=== PATIENT | male | born 1995 | race African-American/Black ===

== ENCOUNTER 2018-01-15 01:37 | Emergency (ER) | payer MEDICAID ==
[~2018-01-15] VITALS: Ht 162.6 cm; Wt 45.4 kg
[2018-01-15 01:40] VITALS: BP_SYST 134
[2018-01-15] MEDS ORDERED: ONDANSETRON HCL 4 MG/2 ML VIAL IVP ONE (02:15)
[2018-01-15] MEDS ORDERED: HALOPERIDOL LACTATE 5 MG/ML VIAL IVP ONE (02:15)
[2018-01-15] MEDS ORDERED: NACL 0.9% 1,000 ML IV ONE (02:15)
[2018-01-15] MEDS ORDERED: MORPHINE 4 MG/ML INJ. SYRINGE IVP ONE (02:30)
[2018-01-15] MEDS ORDERED: FAMOTIDINE PF 20 MG/2 ML VIAL IVP ONE (02:30)
[2018-01-15 02:52] LABS: BILIRUBIN,URINE NEGATIVE (NEGATIVE); CLARITY/URINE SL HAZY (CLEAR); COLOR,URINE YELLOW (YELLOW); GLUCOSE,URINE 2+ (NEGATIVE); KETONES,URINE 2+ (NEGATIVE); LEUKOCYTE ESTERASE ,URINE NEGATIVE (NEGATIVE); NITRITE, URINE NEGATIVE (NEGATIVE); PROTEIN URINE 2+ (NEGATIVE); UROBILINOGEN,URINE 0.2 (0.2-1.0)
[2018-01-15 02:54] LABS: BLOOD, URINE TRACE (NEGATIVE)
[2018-01-15 03:05] LABS: CANNABINOID, URINE POSITIVE (NEG <=50)
[2018-01-15 03:06] LABS: BARBITURATE, URINE NEGATIVE (NEG <=200); BENZODIAZEPINE, URINE NEGATIVE (NEG <=150); COCAINE, URINE NEGATIVE (NEG <=150); METHAMPHETAMINES SCREEN,URINE NEGATIVE (NEG <=500); OPIATE, URINE NEGATIVE (NEG <=100); PHENCYCLIDINE SCREEN,URINE NEGATIVE (NEG <=25); UR TRICYCLIC ANTIDEPRESSANTS NEGATIVE (NEG <=300); URINE AMPHETAMINE NEGATIVE (NEG <=500); URINE METHADONE NEGATIVE (NEG <=200); URINE OXYCODONE SCREEN NEGATIVE (NEG <=100); URINE PROPOXYPHENE SCREEN NEGATIVE (NEG <=300)
[2018-01-15 03:07] LABS: CALCIUM 10.4 mg/dL (8.4-11.0); CREATININE 1.45 mg/dL (0.55-1.30)
[2018-01-15 03:15] LABS: ALBUMIN 5.4 g/dL (3.4-4.8); TOTAL BILIRUBIN 1.6 mg/dL (0.0-1.0)
[2018-01-15 03:32] LABS: BASOPHILS # (AUTO) 0.1 K/uL (0.0-0.2); BASOPHILS % (AUTO) 0.3 % (0.0-2.0); EOSINOPHILS % (AUTO) 0.1 % (0.0-4.0); HEMATOCRIT 48.1 % (36-54); HEMOGLOBIN 16.3 g/dL (14.0-18.0); LYMPHOCYTES # (AUTO) 0.4 K/uL (1.0-5.5); LYMPHOCYTES % (AUTO) 1.7 % (20.5-51.5); MEAN CORPUSCULAR HEMOGLOBIN 30 pg (27-31); MEAN CORPUSCULAR HGB CONC 34 % (32-36); MEAN CORPUSCULAR VOLUME 90 fL (79.0-98.0); MONOCYTES # (AUTO) 0.2 K/uL (0.0-1.0); MONOCYTES % (AUTO) 0.9 % (1.7-9.3); PLATELET COUNT (AUTO) 400 K/uL (130-430); RED BLOOD CELL COUNT(AUTO) 5.37 MIL/uL (4.2-6.2); RED CELL DISTRIBUTION WIDTH 11.7 % (9.0-15.0)
[2018-01-15 03:47] LABS: WHITE BLOOD COUNT (AUTO) 23.7 K/uL (4.8-10.8)
[2018-01-15 03:56] LABS: BACTERIA,URINE MODERATE /HPF (None Seen); WBC,URINE 0-3 /HPF (0-3)
[2018-01-15 03:57] LABS: MUCUS,URINE 3+ /LPF (None Seen); YEAST,URINE None Seen /HPF (None Seen)
[2018-01-15 04:25] VITALS: BP_SYST 130
== END 2018-01-15 04:25 | disposition home or self-care (01) ==
LOC: SED 01:37
DX: K29.70 Gastritis, unspecified, without bleeding (principal)
CPT/HCPCS: 36415; 80053; 80307; 81000; 83690; 85025; 87086; 96374; 96375; 99284; G0482; J1630; J2270; J2405; J3490; J7030

== ENCOUNTER 2018-08-24 16:13 | Emergency (ER) | payer SELFPAY ==
[~2018-08-24] VITALS: Ht 167.6 cm; Wt 49.9 kg
[2018-08-24 16:15] VITALS: BP_SYST 113
[2018-08-24] MEDS ORDERED: NACL 0.9% 1,000 ML IV ONE (16:45)
[2018-08-24] MEDS ORDERED: HALOPERIDOL LACTATE 5 MG/ML VIAL IVP ONE ×2 (16:45→17:45)
[2018-08-24] MEDS ORDERED: KETOROLAC TROMETHAMINE 15 MG VIAL IVP ONE (16:45)
[2018-08-24 16:53] LABS: HEMATOCRIT 47.2 % (36-54); HEMOGLOBIN 15.9 g/dL (14.0-18.0); MEAN CORPUSCULAR HEMOGLOBIN 30 pg (27-31); MEAN CORPUSCULAR HGB CONC 34 % (32-36); MEAN CORPUSCULAR VOLUME 88 fL (79.0-98.0); PLATELET COUNT (AUTO) 364 K/uL (130-430); RED BLOOD CELL COUNT(AUTO) 5.35 MIL/uL (4.2-6.2); RED CELL DISTRIBUTION WIDTH 13.5 % (9.0-15.0); WHITE BLOOD COUNT (AUTO) 16.4 K/uL (4.8-10.8)
[2018-08-24 17:06] LABS: CALCIUM 10.1 mg/dL (8.4-11.0); CREATININE 1.04 mg/dL (0.55-1.30); POTASSIUM 3.4 mmol/L (3.5-5.1)
[2018-08-24 17:10] LABS: ALBUMIN 5.2 g/dL (3.4-4.8); TOTAL BILIRUBIN 1.2 mg/dL (0.0-1.0)
[2018-08-24 17:13] LABS: ATYPICAL LYMPHOCYTES % 0 % (0-0); BAND % (MANUAL) 1 % (0-6); BASOPHILS % (MANUAL) 0 % (0-2); EOSINOPHILS % (MANUAL) 0 % (0-7); LYMPHOCYTES % (MANUAL) 7 % (20-46); MONOCYTES % (MANUAL) 1 % (0-11)
[2018-08-24 17:52] VITALS: BP_SYST 122
== END 2018-08-24 17:49 | disposition home or self-care (01) ==
LOC: SED 16:13
DX: F12.188 Cannabis abuse with other cannabis-induced disorder (principal)
CPT/HCPCS: 36415; 80053; 83690; 85007; 85027; 96361; 96374; 96375; 99283; J1630; J1885; J7030

== ENCOUNTER 2018-10-15 08:43 | Inpatient (IN) | payer SELFPAY ==
[~2018-10-15] VITALS: Ht 170.2 cm; Wt 49.9 kg
--- NOTE | 2018-10-15 08:43 | NUR ---
BROUGHT BACK TO BED #5 AND TRIAGED. REPORT GIVEN TO DIANA
[2018-10-15 08:44] VITALS: BP_SYST 93
[2018-10-15] MEDS ORDERED: ONDANSETRON HCL 4 MG/2 ML VIAL IVP ONE ×2 (08:45→10:30)
[2018-10-15] MEDS ORDERED: NS 1000 ML IV.SOLN IV ONE (08:45)
[2018-10-15] MEDS ORDERED: NACL 0.9% 1,000 ML IV ONE (08:45)
--- NOTE | 2018-10-15 08:45 | NUR ---
Pt presents to ED c/o nausea and vomiting after drinking excessively.
--- NOTE | 2018-10-15 09:00 | NUR ---
ER at bedside examining patient.
--- NOTE | 2018-10-15 09:15 | NUR ---
# 18 gauge angiocath placed to RAC. Use of asceptic technique. Opsite placed over site. Blood return noted. Blood for lab drawn from site. Flushed with 10 cc of normal saline. No evidence of infiltration noted. Patient tolerated well.
[2018-10-15 09:19] LABS: BASOPHILS # (AUTO) 0.1 K/uL (0.0-0.2); BASOPHILS % (AUTO) 0.5 % (0.0-2.0); HEMATOCRIT 47.6 % (36-54); LYMPHOCYTES # (AUTO) 0.5 K/uL (1.0-5.5); MEAN CORPUSCULAR HEMOGLOBIN 29 pg (27-31); MEAN CORPUSCULAR HGB CONC 34 % (32-36); MEAN CORPUSCULAR VOLUME 87 fL (79.0-98.0); MONOCYTES # (AUTO) 1.2 K/uL (0.0-1.0); MONOCYTES % (AUTO) 5.2 % (1.7-9.3); NEUTROPHILS # (AUTO) 21.2 K/uL (1.8-7.7); NEUTROPHILS % (AUTO) 92.3 % (40.0-70.0); PLATELET COUNT (AUTO) 506 K/uL (130-430); RED BLOOD CELL COUNT(AUTO) 5.45 MIL/uL (4.2-6.2); RED CELL DISTRIBUTION WIDTH 12.8 % (9.0-15.0); WHITE BLOOD COUNT (AUTO) 22.9 K/uL (4.8-10.8)
[2018-10-15 09:45] LABS: ANION GAP 16 (5-15); CALCIUM 10.5 mg/dL (8.4-11.0); CHLORIDE 100 mmol/L (98-107); CREATININE 1.35 mg/dL (0.55-1.30); GFR AFRICAN AMERICAN 85 mL/min (>90); GLUCOSE 171 mg/dL (70-99); POTASSIUM 3.5 mmol/L (3.5-5.1); SODIUM SERUM 140 mmol/L (136-145); UREA NITROGEN, BLOOD 15 mg/dL (8-21)
[2018-10-15] MEDS ORDERED: cefTRIAXone 1 GM IVPB PREMIX 50 ML IV ONE (09:45)
[2018-10-15 09:47] LABS: PROTHROMBIN TIME 10.5 SECS (9.5-12.5)
[2018-10-15 09:49] LABS: ALANINE AMINOTRANSFERASE 31 U/L (12-78); ALBUMIN 5.1 g/dL (3.4-4.8); AMYLASE 89 U/L (0-100); ASPARTATE AMINOTRANSFERASE 21 U/L (10-37); LIPASE 41 U/L (73-393); TOTAL BILIRUBIN 0.7 mg/dL (0.0-1.0)
[2018-10-15 09:51] LABS: ALCOHOL, BLOOD < 3 mg/dL (<10)
[2018-10-15 09:52] LABS: ACETAMINOPHEN < 1 ug/mL (1-30)
[2018-10-15] MEDS ORDERED: NACL 0.9% 2,000 ML IV ONE ×2 (10:00→13:00)
[2018-10-15 10:14] LABS: BILIRUBIN,URINE NEGATIVE (NEGATIVE); BLOOD, URINE NEGATIVE (NEGATIVE); CLARITY/URINE CLEAR (CLEAR); COLOR,URINE YELLOW (YELLOW); GLUCOSE,URINE 1+ (NEGATIVE); KETONES,URINE TRACE (NEGATIVE); LEUKOCYTE ESTERASE ,URINE NEGATIVE (NEGATIVE); NITRITE, URINE NEGATIVE (NEGATIVE); PH,URINE 8.5 (5.0-8.0); PROTEIN URINE 1+ (NEGATIVE); UROBILINOGEN,URINE 0.2 (0.2-1.0)
[2018-10-15 10:26] LABS: BARBITURATE, URINE NEGATIVE (NEG <=200); BENZODIAZEPINE, URINE NEGATIVE (NEG <=150); COCAINE, URINE NEGATIVE (NEG <=150); METHAMPHETAMINES SCREEN,URINE NEGATIVE (NEG <=500); OPIATE, URINE NEGATIVE (NEG <=100); PHENCYCLIDINE SCREEN,URINE NEGATIVE (NEG <=25); UR TRICYCLIC ANTIDEPRESSANTS NEGATIVE (NEG <=300); URINE AMPHETAMINE NEGATIVE (NEG <=500); URINE METHADONE NEGATIVE (NEG <=200); URINE OXYCODONE SCREEN NEGATIVE (NEG <=100); URINE PROPOXYPHENE SCREEN NEGATIVE (NEG <=300)
[2018-10-15 10:27] LABS: CANNABINOID, URINE POSITIVE (NEG <=50)
--- NOTE | 2018-10-15 10:45 | NUR ---
Pt given IVF bolus ,continuing to monitor for improvement
--- NOTE | 2018-10-15 11:30 | NUR ---
Pt ambulated to restroom steady gait w/o assist.
--- NOTE | 2018-10-15 12:27 | NUR ---
Pt resting at this time, VSS, respirations even and unlabored.
[2018-10-15 13:25] LABS: BASOPHILS % (AUTO) 0.1 % (0.0-2.0); HEMATOCRIT 38.8 % (36-54); HEMOGLOBIN 12.9 g/dL (14.0-18.0); LYMPHOCYTES # (AUTO) 0.5 K/uL (1.0-5.5); LYMPHOCYTES % (AUTO) 2.8 % (20.5-51.5); MEAN CORPUSCULAR HEMOGLOBIN 30 pg (27-31); MEAN CORPUSCULAR HGB CONC 33 % (32-36); MEAN CORPUSCULAR VOLUME 89 fL (79.0-98.0); MONOCYTES # (AUTO) 0.5 K/uL (0.0-1.0); MONOCYTES % (AUTO) 2.6 % (1.7-9.3); NEUTROPHILS % (AUTO) 94.5 % (40.0-70.0); PLATELET COUNT (AUTO) 351 K/uL (130-430); RED BLOOD CELL COUNT(AUTO) 4.37 MIL/uL (4.2-6.2); RED CELL DISTRIBUTION WIDTH 12.5 % (9.0-15.0)
[2018-10-15] MEDS ORDERED: PROCHLORPERAZINE EDISYLATE 10 MG/2 ML VIAL IVP ONE (14:00)
[2018-10-15] MEDS ORDERED: D5/0.45 NS 1,000 ML IV SCH (14:12)
[2018-10-15] MEDS ORDERED: ONDANSETRON HCL 4 MG/2 ML VIAL IVP PRN (14:15)
--- NOTE | 2018-10-15 14:27 | NUR ---
Pt medicated for nausea,pt tolerated well.
--- NOTE | 2018-10-15 14:28 | NUR ---
Patient will be admitted to care of . Admitted to Med/surg unit. Will go to room 116A. Summary report printed. Report will be given at bedside.
--- NOTE | 2018-10-15 14:49 | NUR ---
ADMISSION NOTE Received patient from ER via doreen, received report from DIANA DAVILA. Patient admitted with diagnosis of GI UPSET. Patient oriented to hospital routine, call light, toileting and safety-patient verbalized understanding.
[2018-10-15 14:50] VITALS: BP_SYST 132
--- NOTE | 2018-10-15 15:00 | NUR ---
Discharged against medical advised After taking vitals sign, patient wants to go home against medical advised, feels better, no nausea, vitals sign stable , denies any epigastric pain , explained to mother Denita Rhoades and patient Jf Jimenez the risk , lab result ,hospital and and admitting doctor will not be responsible for whatever happen if he goes home verbalized understandings, health teaching given regarding alcoholic gastritis, hydration, bland diet . Addendum: 10/15/18 at 1516 by Tiara Blanc RN saline lock removed prior to discharge, no active bleeding. Addendum: 10/15/18 at 15[address] Ti[address]nc RN Dr. Graves informed, electrical & instrumentation supervisor Lizzy, legal officer on duty.
== END 2018-10-15 15:05 | disposition left against medical advice (07) | DRG 918 ==
LOC: SED 08:43 → SMU 14:12
PROVIDERS: ADMIT General Practice; ATTEND General Practice
DX: T51.8X1A Toxic effect of other alcohols, accidental (unintentional), initial encounter (principal); K29.20 Alcoholic gastritis without bleeding; Z53.21 Procedure and treatment not carried out due to patient leaving prior to being seen by health care provider; F10.129 Alcohol abuse with intoxication, unspecified; F12.10 Cannabis abuse, uncomplicated; Y92.89 Other specified places as the place of occurrence of the external cause; Z71.41 Alcohol abuse counseling and surveillance of alcoholic
CPT/HCPCS: 36415; 71045; 80053; 80307; 81003; 82150-TC; 83605; 83690-TC; 85025; 85610-TC; 85730-TC; 87040-TC; 87086; 96361; 96365; 96375; 96376; 99285; G0480; G0481; G0482; J0696; J0780; J2405